=== PATIENT | male | born 1985 | race Caucasian/White ===

== ENCOUNTER 2020-11-04 11:51 | Outpatient (REF) | payer OTHER, SELFPAY ==
--- NOTE | ~2020-11-04 | XR_ITS ---
EXAMINATION: XR SHOULDER, RIGHT CLINICAL INFORMATION: Pain. COMPARISON: None. TECHNIQUE: 3 views of the right shoulder. FINDINGS: There is a mildly comminuted mildly displaced fracture of the distal clavicle. There is mild inferior displacement and angulation of the distal fracture fragment. The articulation at the acromioclavicular joint is grossly maintained and acromioclavicular distance appears maintained on the frontal projections. Normal glenohumeral alignment. No additional acute fractures identified. Visualized right lung is clear. XR/XR shoulder RT min 2V IMPRESSION: Mildly comminuted, mildly displaced and angulated distal clavicle fracture, as detailed above.
== END 2020-11-04 11:52 | disposition home or self-care (01) ==
LOC: HO.HMGCX 11:51
PROVIDERS: PCP Nurse Practitioner Family; Visit Provider Hospitalist
DX: M25.511 Pain in right shoulder (principal)
CPT/HCPCS: 73030

== ENCOUNTER → 2020-11-08 12:38 | Outpatient (BNVA) | payer OTHER, SELFPAY | PROVIDERS: Visit Provider Physician Assistant | DX: S42.033A Displaced fracture of lateral end of unspecified clavicle, initial encounter for closed fracture (principal) | CPT/HCPCS: 99202 ==

== ENCOUNTER 2021-06-27 13:04 | Outpatient (REF) | payer OTHER, SELFPAY ==
[2021-06-27 13:57] LABS: Appearance Urine CLEAR; Color Urine STRAW; Glucose Urine UA NEG (NEG); Leukocyte Esterase Urine NEG (NEG); Nitrite Urine NEG (NEG); Urine Blood NEG (NEG); Urine Ketones NEG (NEG); Urine Protein NEG (NEG-TRACE)
[2021-06-27 14:22] LABS: Alanine Aminotransferase 22 U/L (0-40); Albumin Level 4.5 g/dL (3.5-5.0); Alkaline Phosphatase 59 U/L (39-117); Anion Gap 13 (12-20); Aspartate Amino Transferase 19 U/L (5-37); Bilirubin Total 0.5 mg/dL (0.0-1.0); Blood Urea Nitrogen 14 mg/dL (9-16); Calcium 9.5 mg/dL (8.4-10.2); Carbon Dioxide 26 mmol/L (22-29); Chloride 105 mmol/L (96-108); Cholesterol 193 mg/dL; Estimated Glomerular Filt Rate > 60; Glucose Fasting 97 mg/dL (60-99); HDL Cholesterol 57 mg/dL; LDL Cholesterol Calculated 123 mg/dl; Potassium 3.9 mmol/L (3.3-5.1); Sodium 140 mmol/L (135-145); Total Protein 7.2 g/dL (6.5-8.0); Triglycerides 66 mg/dL
[2021-06-27 14:31] LABS: TSH reflex Free T4 1.36 uIU/mL (0.32-4.0)
== END 2021-06-27 13:05 | disposition home or self-care (01) ==
LOC: HO.HMGCLDS 13:04
PROVIDERS: Visit Provider Nurse Practitioner Family
DX: Z00.00 Encounter for general adult medical examination without abnormal findings (principal)
CPT/HCPCS: 36415; 80053; 80061; 81003; 84443

== ENCOUNTER 2021-09-23 13:00 | Outpatient (REF) | payer OTHER, SELFPAY ==
--- NOTE | ~2021-09-23 | US_ITS ---
EXAMINATION: US THYROID CLINICAL INFORMATION: Anterior larynx deviation. COMPARISON: None TECHNIQUE: Linear transducer grayscale and color Doppler examination with attention to the region of the thyroid. FINDINGS: SIZE: Measurements of the thyroid lobes and nodules are given in sagittal, anteroposterior and transverse dimensions respectively. Right Thyroid Lobe: 5.4 x 1.9 x 1.7 cm, volume 9.1 mL. Parenchyma: The gland echotexture is homogeneous. Thyroid vascularity is normal. Left Thyroid Lobe: 5.2 x 1.5 x 1.8 cm, volume 7.3 mL. Parenchyma: The gland echotexture is homogeneous. Thyroid vascularity is normal. Isthmus: 0.2 cm in maximum AP dimension. NODES: No lymphadenopathy is seen in the tissue surrounding the thyroid gland. ADDITIONAL FINDINGS: Area of larynx/area of clicking sensation was scanned with no obvious soft tissue abnormality seen. US/US thyroid IMPRESSION: Unremarkable ultrasound neck with no abnormality seen in the thyroid gland. No abnormality seen where patient complains of clicking sensation. ACR TI-RADS RECOMMENDATION REFERENCE: Ultrasound-guided fine-needle aspiration, followup ultrasound, no further follow up. * TR1 (0 point) and TR 2 (2 points): No FNA or follow up * TR3 (3 points): FNA if more than or equal to 2.5 cm in maximum dimension, followup ultrasound in 1, 3 and 5 years if 1.5 to 2.4 cm in maximum dimension. * TR4 (4-6 points): FNA if more than or equal to 1.5 cm in maximum dimension, followup ultrasound in 1, 2, 3 and 5 years if 1 to 1.4 cm in maximum dimension. * TR5 (more than or equal to 7 points): FNA if more than or equal to 1 cm in maximum dimension, followup ultrasound every year for 5 years if 0.5 to 0.9 cm in maximum dimension. * TR3, TR4 or TR5 nodules that are below the size threshold for follow up receive no follow up.
== END 2021-09-23 13:01 | disposition home or self-care (01) ==
LOC: HO.HMGCX 13:00
PROVIDERS: Visit Provider Nurse Practitioner Family
DX: J39.8 Other specified diseases of upper respiratory tract (principal)
CPT/HCPCS: 76536

== ENCOUNTER 2023-08-01 07:25 | Outpatient (AMB) | payer BC, SELFPAY ==
--- NOTE | 2023-08-01 07:16 | A.OFFVIS_ITS ---
Intake Intake Visit Reasons: ED/Labs follow up-iphone Allergies PENICILLIN Allergy (Intermediate, Uncoded 08/25/21 11:00) Hives HPI ED/Labs follow up-iphone HPI Details In the beginning of June, patient reported developing fevers. Denied any further symptoms at that time. On approximately day 5 of having a fever with headache, patient went to the emergency room, [facility] in [place], [place]. CT of chest abdomen pelvis was negative for any acute findings. Slight leukopenia noted with elevated liver enzymes noted. Patient reports he never received the diagnosis when he left. It does appear that the fever did completely diminished and patient reported feeling better. Liver enzymes were noted to be in the 200s with a elevated LDH. Pt does report having a couple of drinks during the week, but denies any excessive drinking. Again, patient is feeling better, will repeat labs. (please see all documentation from [facility] in [place], [place]). [facility]LY [facility], [facility] Social History Housing: House Patient Tobacco Use Status: Current someday Tobacco user Tobacco use type: Cigarette Years Smoked: pt maybe smokes 3 cigarettes on the weekends only Current occupational status: employed Current occupation: rt hand/ [employer] Review of Systems Const Denies chills, Denies excessive sweating, Denies fatigue, Denies fever(s), Denies headache(s), Denies lethargy and Denies weakness Eyes Denies blurry vision ENT Denies headache(s) GI Denies abdominal pain, Denies constipation, Denies GI cramping, Denies diarrhea, Denies vomiting and Denies hematemesis Neuro Denies headache(s) and Denies weakness Endo Denies excessive sweating and Denies fatigue Physical Exam Psych Appearance: grossly normal Mental Status: mental status grossly normal Speech and movement: Normal speech and movement present Affect: normal affect Attitude: cooperative Thought process: Normal thought process present Thought content: Normal thought content present Insight: Good insight present (Psych) Judgement: Good judgement present (Psych) Assessment & Plan Assessment & Plan (1) Elevated liver enzymes: Code(s): R74.8 - Abnormal levels of other serum enzymes Plan: Plan is to repeat all his liver enzymes and add on a hepatitis panel. Patient reports he is completely asymptomatic with out any fevers. (2) Fever: Code(s): R50.9 - Fever, unspecified Plan: as above Orders: Orders Comprehensive Met. Panel Today R74.8 - Abnormal levels of other serum enzymes UA CC w/rflx Micro + Cult Today R74.8 - Abnormal levels of other serum enzymes TSH reflex Free T4 Today R74.8 - Abnormal levels of other serum enzymes Lactate Dehydrogenase Today R74.8 - Abnormal levels of other serum enzymes Complete Blood Count Auto Diff Today R74.8 - Abnormal levels of other serum enzymes Hepatitis A,B,C Profile Today R74.8 - Abnormal levels of other serum enzymes Telehealth Telehealth Location of provider rendering services: practice address Location of patient: address on file Patient Identification confirmed using: Name, : Yes Telehealth method: video Patient verbally consented to treatment: Yes Patient verbally consented to billing insurance company: Yes Patient informed of any privacy concerns related to visit: Yes Minutes spent on Phone/Video with Pt.: 15 Coding Level of Care Code Tele Est Pt Level 3 (23265) Diagnoses Elevated liver enzymes R74.8 Fever R50.9
== END 2023-08-01 10:14 | disposition home or self-care (01) ==
LOC: HO.HMGC 07:25
PROVIDERS: PCP Nurse Practitioner Family; Visit Provider Nurse Practitioner Family
DX: R74.8 Abnormal levels of other serum enzymes (principal); R50.9 Fever, unspecified
CPT/HCPCS: 99213

== ENCOUNTER 2023-10-29 11:09 | Outpatient (REF) | payer BC, SELFPAY ==
[2023-10-29 13:25] LABS: MANUAL DIFF FLAG NO
[2023-10-29 13:33] LABS: Basophils Absolute Auto 0.1 X10*3/uL (0.0-0.2); Eosinophils Absolute Auto 0.2 X10*3/uL (0.0-0.4); Eosinophils Percent Auto 3.1 % (0-4); Hematocrit 48.4 % (42.0-52.0); Hemoglobin 16.3 g/dl (14.0-18.0); Imm Gran Abs Auto 0.03 X10*3/uL (0.00-0.03); Imm Gran Pct Auto 0.4 % (0.0-0.4); Lymphocytes Absolute Auto 1.8 X10*3/uL (1.2-4.9); Lymphocytes Percent Auto 23.8 % (20-40); Mean Corpuscular HGB Conc 33.7 g/dl (31.0-36.0); Mean Platelet Volume 11.3 fL (9.4-12.4); Monocytes Absolute Auto 0.5 X10*3/uL (0.1-1.2); Monocytes Percent Auto 7.1 % (2-11); Neutrophils Absolute Auto 4.9 x10*3/uL (2.0-8.3); Neutrophils Percent Auto 64.6 % (45-73); Platelet Count 312 X10*3/uL (160-400); Red Blood Count 5.63 X10*6/uL (4.60-5.80); Red Cell Distribution Width 13.3 % (11.0-16.0); White Blood Count 7.6 X10*3/uL (4.8-10.8)
[2023-10-29 14:12] LABS: Alanine Aminotransferase 23 U/L (0-40); Albumin Level 4.4 g/dL (3.5-5.0); Alkaline Phosphatase 66 U/L (39-117); Anion Gap 14 (12-20); Aspartate Amino Transferase 19 U/L (5-37); Bilirubin Total 0.8 mg/dL (0.0-1.0); Blood Urea Nitrogen 11 mg/dL (9-16); Calcium 9.8 mg/dL (8.4-10.2); Carbon Dioxide 27 mmol/L (22-29); Chloride 105 mmol/L (96-108); Estimated Glomerular Filt Rate > 60; Glucose Random 98 mg/dL (60-115); Lactate Dehydrogenase 212 U/L (118-273); Potassium 4.1 mmol/L (3.3-5.1); Sodium 142 mmol/L (135-145); TSH reflex Free T4 2.07 uIU/mL (0.32-4.0); Total Protein 7.6 g/dL (6.5-8.0)
[2023-10-29 14:24] LABS: Appearance Urine Clear; Color Urine Yellow; Glucose Urine UA Negative (Negative); Leukocyte Esterase Urine Negative (Negative); Nitrite Urine Negative (Negative); Specific Gravity - Urine <= 1.005 (1.005-1.025); Urine Blood Negative (Negative); Urine Ketones Negative (Negative); Urine Protein Negative (Neg-Trace)
[2023-10-30 08:29] LABS: HBS Num1 0.15 mIU/mL (0-7.99); HBc Num1 0.06 S/CO (0.00-0.79); HBsAGNum1 0.44 S/CO (0.00-0.99); Hepatitis A Antibody IgM 0.14 Index (0-0.79); Hepatitis B Core Antibody Nonreactive (Nonreactive); Hepatitis B Surface Antigen Negative (Negative); ~HepC Num1 0.07 S/CO (0.00-0.79); ~Hepatitis A Antibody IgM Nonreactive (Nonreactive); ~Hepatitis B Surface Antibody NONREACTIVE (Nonreactive); ~Hepatitis C Antibody Nonreactive (Nonreactive)
== END 2023-10-29 11:10 | disposition home or self-care (01) ==
LOC: HO.HMGCLDS 11:09
PROVIDERS: PCP Nurse Practitioner Family; Visit Provider Nurse Practitioner Family
DX: R74.8 Abnormal levels of other serum enzymes (principal)
CPT/HCPCS: 36415; 80053; 81003; 83615; 84443; 85025; 86704; 86706; 86709; 86803; 87340

== ENCOUNTER 2024-08-19 11:17 | Outpatient (AMB) | payer BC, SELFPAY ==
[2024-08-19 11:40] VITALS: BP 120/80; PULSE 80; O2SAT 98; BMI 28.5
--- NOTE | 2024-08-19 11:40 | A.OFFPC_ITS ---
Vital Signs 08/19/24 11:40 Height 6 ft 2 in Weight 222 lb BMI 28.5 BP 120/80 Blood Pressure Location Rt brachial Position Sitting Pulse 80 Pulse Source Pulse Oximeter Pulse Oximetry (%) 98 Oxygen Delivery Method Room Air Intake Visit Reasons: PE Intake Note: pt is here for PE Oral Surgery Assistant Required: No Accompanied by: Self / Same As Patient Allergies PENICILLIN Allergy (Intermediate, Uncoded 08/19/24 11:41) Hives Tobacco use date assessed: 08/19/24 Dental Screening Dental Screen Date: 08/19/24 Did you have a dental visit in the last 12 months?: Yes Did you have a dental problem in the last 6 months where you did not have access to dental care?: No Was dental information given to patient?: Patient has dentist HPI PE HPI Details History of Present Illness PE. The patient is a 38-year-old male further presenting with sore throat accompanied by slight swelling of the right tonsil. The symptoms reportedly began this morning. There is no mention of any associated fever or recent upper respiratory tract infections. He reports wearing a mask today. refused vaccinations Health Maintenance Social History Review of Systems - General: Reports shortness of breath. - Gastrointestinal: Reports constipation and diarrhea. - Psychiatric: Reports depression, anxie ty, suicidal ideation, and homicidal ideation. Physical Exam General: Cooperative, healthy appearing, comfortable, no acute distress and well developed Orientation: Patient oriented x3 Limitations: No limitations Head: Normal to inspection Ears: Hearing grossly normal bilaterally Nose: Normal external nose present Face and sinus: Normal facial exam, posterior pharynx with slight erythema, right tonsil slightly swollen. no exudate Eyes: Appearance normal, both eyes and all related structures Neck: Normal visual inspection and Yes full ROM Respiratory: Shortness of breath noted Cardiovascular: Regular rate and rhythm. Normal S1 and S2 GI: Constipation and diarrhea reported Skin: No rashes or lesions noted Neuro: Patient oriented x3 Extremities: Normal to inspection Results - Throat: Strep test was planned but res ults were not discussed. Plan - I will perform a strep test to evaluat e the possibility of streptococcal pharyngitis. Discussion Notes I informed the patient about the intention to perform a strep test to confirm or rule out streptococcal pharyngitis. The importance of identifying the cause of the sore throat was discussed. Return precautions, such as worsening symptoms or respiratory difficulties, were briefly outlined to the patient to ensure timely follow-up. The patient was advised that the plan is contingent on diagnostic findings and that further management will be tailored based on results. Patient Instructions - Wait for the results of your strep vijaya t, which will help determine the next steps. - Monitor symptoms and seek care if you experience worsening throat pain, difficulty breathing, or any new symptoms. - Continue wearing a mask to prevent pot ential spread if infectious. 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 1. Little interest or pleasure in doing things: not at all 2. Feeling down, depressed, or hopeless: not at all 3. Trouble falling or staying asleep, or sleeping too much: not at all 4. Feeling tired or having little energy: not at all 5. Poor appetite or overeating: not at all 6. Feeling bad about yourself - or that you are a failure or have let yourself or your family down: not at all 7. Trouble concentrating on things, such as reading the newspaper or watching television: not at all 8. Moving or speaking so slowly that other people could have noticed. Or the opposite - being so fidgety or restless that you have been moving around a lot more than usual: not at all 9. Thoughts that you would be better off or of hurting yourself in some way: not at all Total score: 0 Depression Screening Interpretation: Negative Depression Screening Done: Yes 43669 - PHQ-9 Billing: Yes Source: Developed by Drs. Jesus Love, Halley Gray, Gm Gill and colleagues, with an educational samina from [employer]. Thrive Questionnaire Date Thrive assessed: 08/19/24 I am a: Patient What is your living situation today?: I have a steady place to live Within the past 12 months, did the food you bought not last and you didn't have the money to get more?: Never true Within the past 12 months, did you worry whether your food would run out before you got money to buy more?: Never true Do you have trouble paying for medicines?: No Do you have trouble getting transportation to medical appointments?: No Do you have trouble paying your heating and electricity bill?: No Do you have trouble taking care of your child, family member or friend?: No Do you have trouble with day-to-day activities such as bathing, preparing meals, shopping, managing finances, etc.?: No Are you currently unemployed and looking for a job?: No Are you interested in more education?: I choose not to answer this question Please select the resources that you would like help with: None Currently or been in a relationship where the following occur: No concerns reported THRIVE Score: 0 AUDIT C Alcohol Use Questionnaire (AUDIT-C) 1. How often do you have a drink containing alcohol?: 2-3 times a week 2. How many drinks containing alcohol do you have on a typical day when you are drinking?: 1 or 2 3. How often do you have six or more drinks on one occasion?: Never Total Score: 3 Score Reviewed/Action Taken: Yes SASKIA-7 AMB Questionnaire SASKIA-7 Date SASKIA - 7 assessed: 08/19/24 Feeling nervous, anxious, or on edge: 0 = Not at all Not being able to stop or control worryin = Not at all Worrying too much about different things: 0 = Not at all Trouble relaxin = Not at all Being so restless that it is hard to sit still: 0 = Not at all Becoming easily annoyed or irritable: 0 = Not at all Feeling afraid as if something awful might happen: 0 = Not at all Total SASKIA-7 score (0-4 normal; 5-9 mild; 10-14 moderate; 15-21 severe): 0 Source: Developed by Drs. Jesus Love, Halley Gray, Gm Gill and colleagues, with an educational samina from [employer]. SASKIA-7 Assessment Billing SASKIA-7 Assessment Tool: SASKIA-7 Assessment 68215 Physical exam (Primary Care) Vital Signs: Last Vital Signs Pulse 80 08/19/24 11:40 BP 120/80 08/19/24 11:40 Pulse Ox 98 08/19/24 11:40 Oxygen Delivery Method Room Air 08/19/24 11:40 BMI result Body Mass Index 28.5 Tobacco/Smoking Status: Tobacco use Status Tobacco use date assessed 08/19/24 08/19/24 11:42 Patient Tobacco Use Status Current someday Tobacco 08/19/24 12:03 Tobacco use type Cigarette 08/19/24 12:03 e-Cigarette/Vaping Use Never Used 08/19/24 12:03 PHQ-9: PHQ-9 Score PHQ-9: Total score 0 08/19/24 12:04 Depression Screening Interpretation: Negative Thrive Assessment: Date of Thrive Assessment Date Thrive assessed 08/19/24 08/19/24 11:42 Currently or been in a relationship where the following occur: No concerns reported Results AMB Rapid Strep AMB Rapid Strep Negative Last Edit by Toni Sharp CMA on 08/19/24 12 :23 Results Reviewed Results Reviewed: Laboratory Last Values Strep Scn Rapid Clinic Negative 08/19/24 12:10 Coding Level of Care Code Est Pt Prev Care 18-39y(97211) Diagnoses Physical exam Z00.00 Additional Codes SASKIA-7 Assessment Billing - SASKIA-7 Assessment Tool: SASKIA-7 Assessment 96062 ([id number]) PHQ-9 - 70593 - PHQ-9 Billing: Yes ([id number]) Assessment & Plan Assessment & Plan (1) Physical exam: Code(s): Z00.00 - Encounter for general adult medical examination without abnormal findings Category: Medical Plan . Orders: Orders Comprehensive [place]. Panel Fast Today Z00.00 - Encounter for general adult medical examination without abnormal findings TSH reflex Free T4 Today Z00.00 - Encounter for general adult medical examination without abnormal findings UA CC w/rflx Micro + Cult Today Z00.00 - Encounter for general adult medical examination without abnormal findings Lipid Panel Today Z00.00 - Encounter for general adult medical examination without abnormal findings Complete Blood Count Auto Diff Today Z00.00 - Encounter for general adult medical examination without abnormal findings AMB Rapid Strep Screen Today Z13.9 - Encounter for screening, unspecified
--- OUTSIDE RECORDS SUMMARY | 2024-08-19 13:03 | XMS_ITS | Clinical Summary ---
Author Organization [facility] ity Address [address] [place] [address] Care Team Providers Care Roofer Helper Name Role Phone Jovany Marsh NP Primary Care Provider Social History Tobacco Use Types Packs/Day Years Used Date Smoking Tobacco: Never Smokeless Tobacco: Never Alcohol Use Standard Drinks/Week Comments Yes 0 (1 standard drink = 0.6 oz pur e alcohol) Sex and Gender Information Value Date Recorded Sex Assigned at Not on file Gender Identity Not on file Sexual Orientation Not on file Obstetrics History Plan of Treatment Health Maintenance Due Date Last Done Comments DTaP,Tdap,and Td Vaccines (1 - Tdap) 2004 Hepatitis B Vaccines (1 of 3 - 19+ 3-dose series) 2004 Cholesterol Screening (Lipid Panel) 08/24/2023 Depression Screening 08/24/2023 HIV Screening 08/24/2023 Hepatitis C Screening 08/24/2023 Social Influencers of Health Screening 08/24/2023 COVID-19 Vaccine ( - 2023-2 5 season) 2024 Influenza Vaccine (#1) 2024 HIB Vaccines Aged Out No longer eligi ble based on patient's age to complete this topic HPV Vaccines Aged Out No longer eligi ble based on patient's age to complete this topic Hepatitis A Vaccines Aged Out No long er eligible based on patient's age to complete this topic IPV Vaccines Aged Out No longer eligi ble based on patient's age to complete this topic MMR Vaccines Aged Out No longer eligi ble based on patient's age to complete this topic Meningococcal ACWY Vaccine Aged Out N o longer eligible based on patient's age to complete this topic Pneumococcal Vaccine: Pediat rics (0 to 5 Years) and At-Risk Patients (6 to 64 Years) Aged Out No longer eligible b ased on patient's age to complete this topic RSV Immunization Patients Un suki 20 months Aged Out No longer eligible b ased on patient's age to complete this topic Varicella Vaccines Aged Out No longer eligible based on patient's age to complete this topic Care Teams Roofer Helper Relationship Specialty Start Date End Date Jovany Marsh NP [address] [facility] [place] PCP - General 07/08/23
--- OUTSIDE RECORDS SUMMARY | 2024-08-19 13:03 | XMS_ITS | Clinical Summary ---
Author Organization [facility] Address [address] [place] [id number] Care Team Providers Care Chlorine Operator Name Role Phone Jovany Marsh Primary Care Provider [phone] Allergies Active Allergy Reactions Criticality Noted Date Comments Penicillins Hives 07/08/2023 Medications No known medications Active Problems No known active problems Social History Tobacco Use Types Packs/Day Years Used Date Smoking Tobacco: Never Smokeless Tobacco: Never Tobacco Cessation:Counseling Given: Not Answered Alcohol Use Standard Drinks/Week Comments Yes 0 (1 standard drink = 0.6 oz pure alcohol) drinks a few nights a week 2 beers or 2 glasses of wine a week Sex and Gender Information Value Date Recorded Sex Assigned at Male 07/08/2023 10:44 AM EST Gender Identity Not on file Sexual Orientation Not on file Job Start Date Occupation Industry Not on file Not on file Not on file Last Filed Vital Signs Vital Sign Reading Time Taken Comments Blood Pressure 130/88 07/08/2023 2:11 PM EST Pulse 96 07/08/2023 2:11 PM EST Temperature 37.3 ??C (99.1 ??F) 07/08/2023 2:11 PM ES T Respiratory Rate 16 07/08/2023 2:11 PM EST Oxygen Saturation 100% 07/08/2023 2:11 PM EST Inhaled Oxygen Concentration - - Weight 95.3 kg (210 lb) 07/08/2023 10:23 AM EST Height 188 cm (6' 2 ) 07/08/2023 10:23 AM EST Body Mass Index 26.96 07/08/2023 10:23 AM EST Plan of Treatment Health Maintenance Due Date Last Done Comments Hepatitis B Vaccines (1 of 3 - 3-dose series) 1985 Hepatitis C Screening 1985 COVID-19 Vaccine (#1) 03/30/1986 Depression Screening 1997 Preventative Health Evaluation 09/28/2003 DTap / Tdap / Td (2 - Tdap) 11/27/2008 11/27/1998 Influenza Vaccine (#1) 2024 Pneumococcal Vaccine Aged Out No long er eligible based on patient's age to complete this topic RSV Ped < 20 months Aged Out No longe r eligible based on patient's age to complete this topic Care Teams Chlorine Operator Relationship Specialty Start Date End Date Jovany Marsh [address] [facility] [place] [address] PCP - General Family Medicine 07/08/23
== END 2024-08-19 12:26 | disposition home or self-care (01) ==
PROVIDERS: PCP Nurse Practitioner Family; Visit Provider Nurse Practitioner Family
DX: Z13.9 Encounter for screening, unspecified (principal); Z00.00 Encounter for general adult medical examination without abnormal findings

== ENCOUNTER → 2024-08-19 11:17 | Outpatient (BNVA) | payer BC, SELFPAY | PROVIDERS: PCP Nurse Practitioner Family; Visit Provider Nurse Practitioner Family | DX: Z00.01 Encounter for general adult medical examination with abnormal findings (principal); J02.9 Acute pharyngitis, unspecified | CPT/HCPCS: 87880; 96127 ==

== ENCOUNTER 2024-11-26 14:27 | Outpatient (REF) | payer BC, SELFPAY ==
--- NOTE | ~2024-11-26 | FL_ITS ---
EXAMINATION: Modified Barium Swallow CLINICAL INFORMATION: Dysphagia COMPARISON: None TECHNIQUE: Modified barium swallow was performed under lateral fluoroscopy with patient in standing position. Barium mixed with solids and liquids of different consistencies was administered by the speech pathologist. Examination was recorded in the fluoroscopy suite. FINDINGS: On all consistencies, normal swallow function without evidence of laryngeal penetration, glottic or subglottic aspiration. FLUOROSCOPY TIME: 50 seconds Number of Spot Images: N/A DOSE AREA PRODUCT: 393.7 uGy-m2 (microgray-meter squared) FL/FL Modified Barium Swallow IMPRESSION: Normal modified barium examination. Please refer to the speech pathology report to follow for full details. This procedure was performed by Patrick Cody PA-C, and supervised by Dr. Roche Electronically signed by: Eugene Roche MD 11/26/2024 03:34 PM EDT
--- OUTSIDE RECORDS SUMMARY | 2024-11-26 15:45 | XMS_ITS | Clinical Summary ---
Author Organization [facility] Address [address] [place] [address] Care Team Providers Care Template Storage Clerk Name Role Phone Jovany Marsh Primary Care Provider [phone] Allergies Active Allergy Reactions Criticality Noted Date [...] age to complete this topic Care Teams Template Storage Clerk Relationship Specialty Start Date End Date Jovany Marsh [address] [facility] [place] [address] PCP - General Family Medicine 07/08/23
--- OUTSIDE RECORDS SUMMARY | 2024-11-26 15:45 | XMS_ITS | Clinical Summary ---
Author Organization [facility] ity Address [address] [place] [address] Care Team Providers Care Supervisor [employer] Textile Name Role Phone Jovany Marsh NP Primary Care Provider Social History Tobacco Use Types Packs/Day Years Used Date Smoking Tobacco: Never Smokeless Tobacco: Never Alcohol Use Standard Drinks/Week Comments Yes 0 (1 standard drink = 0.6 oz pur e alcohol) Sex and Gender Information Value Date Recorded Sex Assigned at Not on file Legal Sex Male 8:36 PM EST Gender Identity Not on file Sexual [...] Influencers of Health Screening 08/24/2023 COVID-19 Vaccine (2023-2 5 season) 2024 Influenza Vaccine (Season Ended) 2025 HIB Vaccines Aged Out No longer eligi [...] patient's age to complete this topic Meningococcal B Vaccine Aged Out No l onger eligible based on patient's age to complete [...] age to complete this topic Care Teams Supervisor [employer] Relationship Specialty Start Date End Date Jovany Marsh NP [address] [place], [place] PCP - General 07/08/23
--- NOTE | 2024-11-27 09:00 | MHC.SL.IMP ---
Date of Plan of Treatment: 11/26/24 Onset of Symptoms/Illness: 05/19/24 Date Treatment Started: 11/26/24 Admitting Diagnosis: N/A Primary Speech & Language Diagnosis: R13.10 Dysphagia Reason for Today's Visit: 38064 Modified Barium Swallow Study Pre-evaluation Dietary Consistencies: Regular Pre-evaluation Liquid Consistency: Thin Pre-evaluation Medication Administration: Whole with Liquid Medical History: Modified Barium Swallow Study Fluoroscopic Evaluation of Swallowing Function CPT Code 63663 Evaluation Year: 2024 Reason for Study: Patient describing ?clicking in throat? Referring Physician: Jovany OJEDA Evaluating Clinician: Ivory Saldaña MA, CCC-ICE SKATING INSTRUCTOR Study Number: 1 Patient Name: Eugene Arreola Status: Outpatient, Ambulatory Age: 39 Gender: Male Medical History N/A Current (pre-evaluation) Intake/Diet: Route: PO Diet Grade: Regular Liquid Consistencies: Thin Pre-Study Functional Oral Intake Scale (FOIS): 7- Total oral intake with no restrictions Pain: None reported at time of study SUBJECTIVE: Patient is a 39 year old male referred for a modified barium swallow study (MBSS) by Jovany OJEDA from the [facility] Primary Care Office in [place]. Patient reports a ?clicking? sensation in his throat on the right side when he swallows. He also notes his tonsil on that same side is enlarged. Patient denies coughing or choking during meals and denies odynophagia. Oral Motor Exam Facial Symmetry: Symmetrical Mouth Occlusion: Normal Oral-Facial Teeth Characteristics: Intact/Normal Oral-Facial Lip Pucker Description: Normal Oral-Facial Smile (Lips) Description: Normal Oral-Facial Puff Cheeks Description: Normal Tongue Size: Normal Tongue Excursion Description: Normal Tongue Range of Movement Description: Normal Tongue Speed of Movement Description: Normal Tongue Strength of Movement (against opposing pressure): Normal Tongue Movement Characteristics: Normal/Absent Is patient able to manage secretions?: Yes Is patient able to produce volitional cough?: Yes Food and Liquid Trials: Oral Impairment: Lip Closure: Did not test Oral Impairment: Tongue Control During Bolus Hold: 0=Cohesive bolus between tongue to palatal seal Oral Impairment: Bolus Preparation/Mastication: 0=Timely and efficient chewing and mashing Oral Impairment: Bolus Transport/Lingual Motion: 0=Brisk tongue motion Oral Impairment: Oral Residue: 1=Trace residue lining oral structures Oral Impairment:Initiation of Pharyngeal Swallow: 0=Bolus head at posterior angle of ramus (first hyoid excursion) Pharyngeal Impairment: Soft Palate Elevation: 0=No bolus between soft palate (SP)/pharyngeal wall (PW) Pharyngeal Impairment: Laryngeal Elevation: 0=Complete superior movement of thyroid cartilage (see description) Pharyngeal Impairment: Anterior Hyoid Excursion: 0=Complete anterior movement Pharyngeal Impairment: Epiglottic Movement: 0=Complete inversion Pharyngeal Impairment: Laryngeal Vestibular Closure:: 0=Complete: no air/contrast in laryngeal vestibule Pharyngeal Impairment: Pharyngeal Stripping Wave: 0=Present: complete Pharyngeal Impairment: Pharyngeal Contraction: Did not test Pharyngeal Impairment: Pharyngoesophageal Segment Openin=Complete distension and complete duration: no obstruction of flow Pharyngeal Impairment: Tongue Base (TB) Retraction: 1=Trace column of contrast/air between TB and posterior PW Pharyngeal Impairment: Pharyngeal Residue: 1=Trace residue within or on pharyngeal structures Pharyngeal Impairment: Esophageal Clearance Upright Position: Did not test Impressions and Recommendations Clinical Observations: OBJECTIVE: Time-out: performed at 14:45 Evaluation Start: 14:30; Stop: 14:35 Patient Positioning: Standing Viewing Planes: LATERAL ONLY Contrast: MBSImP? Standardized Protocol using commercially prepared, standardized Barium viscosities, including: Varibar? THIN LIQUID (40% w/v, <15 cps) , Varibar? PUDDING (40% w/v, <1873-6052 cps) , 1/2 Shortbread Cookie (1 x1 x.25 ) [id number] ID: [id number] [facility]: Lip closure for intraoral bolus containment could not be assessed due to logistical reasons not related to physiologic impairment. Tongue control during bolus hold maintained a cohesive bolus held between tongue to palate seal. Bolus preparation and mastication resulted in timely and efficient chewing and mashing. Bolus transport/lingual motion was with brisk tongue motion. Oral residue was a trace, lining oral structures. Initiation of the pharyngeal swallow occurred as the bolus head reached the posterior angle of the mandibular ramus. Soft palate elevation resulted in no bolus between the soft palate and the pharyngeal wall. Laryngeal elevation demonstrated complete superior movement of the thyroid cartilage with complete approximation of the arytenoids to the epiglottic petiole. Anterior hyoid excursion demonstrated complete anterior movement. Epiglottic movement resulted in complete inversion. Laryngeal vestibular closure was complete, as indicated by no air or contrast within the laryngeal vestibule at the height of the swallow. Pharyngeal stripping wave was present and complete. Pharyngeal contraction could not be determined due to logistical reasons not related to physiologic impairment. Pharyngoesophageal segment opening was completely distended for complete duration with no obstruction of bolus flow. Tongue base retraction allowed a trace column of contrast or air between the retracted tongue base and the posterior pharyngeal wall. Pharyngeal residue was a trace within or on pharyngeal structures. Esophageal clearance in the upright position could not be assessed due to logistical reasons not related to physiologic impairment. Oral Impairment Score: 0 (absence of score, component 1) Pharyngeal Impairment Score: 0 (absence of score, component 13) Esophageal Impairment Score: --- (absence of score, component 17) Laryngeal Penetration and Aspiration: Neither penetration nor aspiration was observed in today's study with Cookie, Pudding-thick, Thin. ASSESSMENT: Clinician Assessment: This exam was performed by the speech pathologist and the radiologist. Patient was standing for lateral view only. He fed himself without difficulty and trialed thin (cup sips), puree, and regular solid textures. Note good tongue control with no premature spilling. Mastication was timely and efficient. Posterior lingual transport was also timely, with brisk motion. Trace residue coated the tongue. Pharyngeal swallow trigger was timely. No evidence of nasopharyngeal reflux. Complete laryngeal elevation with complete epiglottic inversion and complete laryngeal vestibular closure. No evidence of aspiration or penetration during this exam. There was trace residue on the tongue base and in the valleculae and pyriforms, which subsequently cleared. Liquid Intake Recommendation: Thin Liquid Intake Strategies: Unrestricted Dietary Recommendations: Regular Medication Administration: Whole with Liquid Please contact the pharmacy regarding appropriate crushable or liquid drug formulations that are available whenever modified delivery is recommended. Compensatory Strategies Recommended: Sitting Upright (90 deg), Small Bites and Sips, Rate of Ingestion Change Recommendation for Speech Therapy: NA:Typical Evaluation Text Comment: Intake Recommendations: Route: PO Diet Grade: Regular Liquid Consistencies: Thin Post-Study Functional Oral Intake Scale (FOIS): 7- Total oral intake with no restrictions No evidence of aspiration or penetration. Good oral and pharyngeal clearance. Therapy Recommendations: Exam was unremarkable. Further ST is not indicated at this time, as oral phase and pharyngeal phase swallow is deemed within functional limits. Recommend resume unmodified diet of Regular solids and Thin liquids. Clinician - Supplemental, Miscellaneous Communication: It is important to note MBSS objective studies are snapshots in time and Patient function might vary with factors such as time of day or concomitant medical conditions. For this reason, the final treatment plan for this patient should rest with their medical care team. Additional recommendations should be considered with the totality of the Patient in mind. Thank for the opportunity to participate in the care of this patient. If you have any questions about the content of this report, please contact the [facility] at [facility]. Education: Education regarding findings from today's study and plans for therapy were provided to Patient only through Verbal Instruction. Understanding was expressed by the Patient only. Small Animal Caretaker Clinician/Clinical Fellow: No Supervisory Statement: N/A Speech Language Pathologist: Ivory Saldaña M.A., CCC-ICE SKATING INSTRUCTOR
== END 2024-11-26 14:28 | disposition home or self-care (01) ==
LOC: HO.XRAY 14:27
PROVIDERS: Visit Provider Nurse Practitioner Family
DX: R13.10 Dysphagia, unspecified (principal)
CPT/HCPCS: 74230; 92611

== ENCOUNTER → 2024-11-26 14:30 | Outpatient (BNV) | payer BC, SELFPAY | PROVIDERS: Visit Provider Radiology Diagnostic Radiology | DX: R13.10 Dysphagia, unspecified (principal) | CPT/HCPCS: 74230 ==